=== PATIENT | female | born 1985 ===

== ENCOUNTER 2018-05-02 14:11 | Outpatient (CLI) | payer OTHER ==
[~2018-05-02] VITALS: Ht 154.9 cm; Wt 80.7 kg
== END 2018-05-02 14:25 | disposition home or self-care (01) ==
LOC: OFIC 805 14:11
DX: R49.0 Dysphonia (principal); J38.2 Nodules of vocal cords; J38.3 Other diseases of vocal cords

== ENCOUNTER 2018-07-21 08:30 | Outpatient (CLI) | payer OTHER ==
[~2018-07-21] VITALS: Ht 152.4 cm; Wt 80.7 kg
== END 2018-07-21 08:45 | disposition home or self-care (01) ==
LOC: OFIC 805 08:30
DX: J38.3 Other diseases of vocal cords (principal); J38.2 Nodules of vocal cords; R49.0 Dysphonia